=== PATIENT | female | born 1970 | race Caucasian/White ===

== ENCOUNTER 2021-05-11 15:48 | Inpatient (IN) | payer MEDICAID ==
[~2021-05-11] VITALS: Ht 160 cm; Wt 72.1 kg
[2021-05-11] MEDS ORDERED: RISP2TAB45 PO (16:12)
[2021-05-11] MEDS ORDERED: QUET200T PO (16:12)
[2021-05-11] MEDS ORDERED: LAMO100 PO ×2 (16:12→16:46)
[2021-05-11] MEDS ORDERED: CEPH500C3 PO (16:12)
[2021-05-11] MEDS ORDERED: CLON-595 PO (16:46)
[2021-05-11] MEDS ORDERED: HALOPERIDOL 5 MG TABLET PO PRN (20:00)
[2021-05-11] MEDS ORDERED: ZOLPIDEM TARTRATE 10 MG TABLET PO PRN (20:00)
[2021-05-11] MEDS ORDERED: LORazepam 2 MG TABLET PO PRN (20:00)
[2021-05-11 20:20] VITALS: BP 153/86
[2021-05-11 20:46] VITALS: BP 153/86
[2021-05-12 02:52] VITALS: BP 103/66
[2021-05-12 07:08] LABS: BASOPHILS % (AUTO) 0.2 % (0.0-2.0); EOSINOPHILS % (AUTO) 0.9 % (1.0-6.0); LYMPHOCYTES # (AUTO) 2.3 K/uL (1.0-4.8); LYMPHOCYTES % (AUTO) 35.5 % (22.0-44.0); MEAN CORPUSCULAR HEMOGLOBIN 32.1 pg (26.0-34.0); MEAN CORPUSCULAR HGB CONC 33.3 G/dL (31.0-37.0); MEAN CORPUSCULAR VOLUME 97 fL (80-100); MONOCYTES # (AUTO) 0.8 K/uL (0.1-1.0); MONOCYTES % (AUTO) 12.3 % (2.0-9.0); NEUTROPHILS # (AUTO) 3.3 K/uL (1.8-7.7); NEUTROPHILS % (AUTO) 51.1 % (40.0-70.0); PLATELET COUNT (AUTO) 216 K/uL (150-450); RED BLOOD CELL COUNT(AUTO) 3.73 MIL/uL (4.00-5.20); RED CELL DISTRIBUTION WIDTH 14.4 % (11.5-14.5)
[2021-05-12 07:21] LABS: HEMOGLOBIN A1C 5.1 % (3.8-5.6)
[2021-05-12 07:36] LABS: ALANINE AMINOTRANSFERASE 87 U/L (12-78); ALBUMIN 2.8 g/dL (3.4-5.0); ALKALINE PHOSPHATASE 50 U/L (46-116); ANION GAP 7 mmol/L (8-16); ASPARTATE AMINOTRANSFERASE 53 U/L (15-37); BILIRUBIN,TOTAL 0.2 mg/dL (0.1-1.0); CALCIUM, TOTAL 8.5 mg/dL (8.8-10.5); CARBON DIOXIDE 27 mmol/L (22-29); CHLORIDE 109 mmol/L (98-107); CHOLESTEROL 120 mg/dL (131-200); CREATININE 0.88 mg/dL (0.60-1.30); FREE T4 (FREE THYROXINE) 0.86 ng/dL (0.76-1.46); GLOMERULAR FILTR. RATE CALC > 60 mL/min (>60); GLUCOSE,RANDOM 90 mg/dL (70-110); HDL CHOLESTEROL 40 mg/dL (40-60); LDL CHOL (CALC.) 52 mg/dL (0-130); POTASSIUM 3.7 mmol/L (3.5-5.1); SODIUM SERUM 143 mmol/L (136-145); THYROID STIMULATING HORMONE 3.85 uIU/mL (0.36-3.74); TRIGLYCERIDES 139 mg/dL (15-150); UREA NITROGEN, BLOOD 13 mg/dL (7-18)
[2021-05-12] MEDS: CEPHALEXIN MONOHYDRATE 500 MG CAPSULE PO SCH ×4 (08:11→20:08)
[2021-05-12 09:22] VITALS: BP 110/74
[2021-05-12] MEDS ORDERED: CloNIDine HCL 0.1 MG TABLET PO PRN (10:15)
[2021-05-12] MEDS ORDERED: BENZOCAINE/MENTHOL LOZENGE PO PRN (10:15)
[2021-05-12] MEDS ORDERED: DOCUSATE SODIUM 100 MG CAPSULE PO PRN (10:15)
[2021-05-12] MEDS ORDERED: ACETAMINOPHEN 325 MG TABLET PO PRN (10:15)
[2021-05-12] MEDS ORDERED: MAG HYDROX/AL HYDROX/SIMETH ES 30 ML SUSPENSION UDCUP PO PRN (10:15)
[2021-05-12] MEDS ORDERED: MAGNESIUM HYDROXIDE SUSPENSION 30 ML UDCUP PO PRN (10:15)
[2021-05-12] MEDS ORDERED: PETROLATUM,WHITE 28 GM JELLY TP PRN (10:15)
[2021-05-12] MEDS ORDERED: ALBUTEROL SULFATE HFA 90 MCG/PUFF 8 GM INHALER IH PRN (10:15)
[2021-05-12] MEDS ORDERED: OMEPRAZOLE 20 MG CAPSULE PO PRN (10:15)
[2021-05-12] MEDS ORDERED: IBUPROFEN 600 MG TABLET PO PRN (10:15)
[2021-05-12] MEDS ORDERED: ONDANSETRON HCL 4 MG TABLET PO PRN (10:15)
[2021-05-12] MEDS ORDERED: LOPERAMIDE HCL 2 MG CAPSULE PO PRN (10:15)
[2021-05-12] MEDS ORDERED: BACITRACIN 28 GM OINTMENT TP PRN (10:15)
[2021-05-12] MEDS: DIVALPROEX SODIUM 500 MG DR TABLET PO SCH ×2 (12:20→20:08)
[2021-05-12] MEDS: BENZTROPINE MESYLATE 2 MG TABLET PO SCH ×2 (12:20→16:27)
[2021-05-12] MEDS: LITHIUM CARBONATE 300 MG CAPSULE PO SCH (12:21)
[2021-05-12] MEDS: HALOPERIDOL 10 MG TABLET PO SCH ×2 (12:24→16:27)
[2021-05-12 16:08] VITALS: BP 110/66
[2021-05-12] MEDS: LITHIUM CARBONATE 600 MG CAPSULE PO SCH (20:08)
[2021-05-12] MEDS: OLANZapine 10 MG TABLET PO SCH (20:08)
[2021-05-13 01:08] VITALS: BP 113/63
[2021-05-13] MEDS: LEVOTHYROXINE SODIUM 50 MCG TABLET PO SCH (06:40)
[2021-05-13 08:05] VITALS: BP 102/61
[2021-05-13] MEDS: CEPHALEXIN MONOHYDRATE 500 MG CAPSULE PO SCH ×4 (08:19→20:18)
[2021-05-13] MEDS: HALOPERIDOL 10 MG TABLET PO SCH ×2 (08:19→16:09)
[2021-05-13] MEDS: BENZTROPINE MESYLATE 2 MG TABLET PO SCH ×2 (08:19→16:09)
[2021-05-13] MEDS: DIVALPROEX SODIUM 500 MG DR TABLET PO SCH ×2 (08:19→20:23)
[2021-05-13] MEDS: LITHIUM CARBONATE 300 MG CAPSULE PO SCH (08:19)
[2021-05-13 16:08] VITALS: BP 110/66
[2021-05-13] MEDS: OLANZapine 10 MG TABLET PO SCH (20:19)
[2021-05-13] MEDS: LITHIUM CARBONATE 600 MG CAPSULE PO SCH (20:19)
[2021-05-14 00:30] VITALS: BP 107/62
[2021-05-14] MEDS: LEVOTHYROXINE SODIUM 50 MCG TABLET PO SCH (06:36)
[2021-05-14 07:44] LABS: APPEARANCE,URINE CLEAR (CLEAR); BILIRUBIN,URINE NEGATIVE (NEGATIVE); GLUCOSE, URINE (UA) NEGATIVE (NEGATIVE); KETONES,URINE NEGATIVE (NEGATIVE); LEUKOCYTE ESTERASE ,URINE SMALL (NEGATIVE); NITRATE,URINE NEGATIVE (NEGATIVE); OCCULT BLOOD,URINE SMALL (NEGATIVE); PROTEIN,URINE NEGATIVE (NEGATIVE); UROBILINOGEN,URINE 0.2 mg/dL (<=1.0)
[2021-05-14 07:58] LABS: AMPHET/METH SCREEN,URINE NEGATIVE (NEGATIVE); BARBITURATE SCREEN, URINE NEGATIVE (NEGATIVE); BENZODIAZEPINES SCREEN,URINE NEGATIVE (NEGATIVE); CANNABINOID SCREEN,URINE NEGATIVE (NEGATIVE); COCAINE SCREEN,URINE NEGATIVE (NEGATIVE); METHADONE SCREEN, URINE NEGATIVE (NEGATIVE); OPIATE SCREEN,URINE NEGATIVE (NEGATIVE)
[2021-05-14 08:04] VITALS: BP 94/53
[2021-05-14 08:04] LABS: BACTERIA,URINE None Seen /HPF (None Seen); RBC,URINE 0-2 /HPF (0-2); SQUAMOUS EPITHELIAL CELL,UR Few /LPF (None Seen)
[2021-05-14 08:08] LABS: PHENCYCLIDINE SCREEN,URINE NEGATIVE (NEGATIVE)
[2021-05-14] MEDS: DIVALPROEX SODIUM 500 MG DR TABLET PO SCH ×2 (08:24→20:42)
[2021-05-14] MEDS: CEPHALEXIN MONOHYDRATE 500 MG CAPSULE PO SCH ×4 (08:24→20:42)
[2021-05-14] MEDS: HALOPERIDOL 10 MG TABLET PO SCH ×2 (08:25→16:21)
[2021-05-14] MEDS: LITHIUM CARBONATE 300 MG CAPSULE PO SCH (08:25)
[2021-05-14] MEDS: BENZTROPINE MESYLATE 2 MG TABLET PO SCH ×2 (08:25→16:21)
[2021-05-14 08:34] VITALS: BP 96/63
[2021-05-14 16:08] VITALS: BP 105/64
[2021-05-14] MEDS: OLANZapine 10 MG TABLET PO SCH (20:42)
[2021-05-14] MEDS: LITHIUM CARBONATE 600 MG CAPSULE PO SCH (20:42)
[2021-05-15 04:20] VITALS: BP 104/54
[2021-05-15] MEDS: LEVOTHYROXINE SODIUM 50 MCG TABLET PO SCH (06:25)
[2021-05-15 08:13] VITALS: BP 117/72
[2021-05-15] MEDS: LITHIUM CARBONATE 300 MG CAPSULE PO SCH (08:40)
[2021-05-15] MEDS: DIVALPROEX SODIUM 500 MG DR TABLET PO SCH ×2 (08:40→20:31)
[2021-05-15] MEDS: BENZTROPINE MESYLATE 2 MG TABLET PO SCH ×2 (08:40→16:31)
[2021-05-15] MEDS: HALOPERIDOL 10 MG TABLET PO SCH ×2 (08:40→16:31)
[2021-05-15] MEDS: CEPHALEXIN MONOHYDRATE 500 MG CAPSULE PO SCH ×4 (08:40→20:30)
[2021-05-15 16:04] VITALS: BP 100/65
[2021-05-15] MEDS: OLANZapine 10 MG TABLET PO SCH (20:30)
[2021-05-15] MEDS: LITHIUM CARBONATE 600 MG CAPSULE PO SCH (20:30)
[2021-05-16 00:36] VITALS: BP 108/56
[2021-05-16] MEDS: LEVOTHYROXINE SODIUM 50 MCG TABLET PO SCH (06:16)
[2021-05-16 07:47] LABS: COVID AG,FIA SOURCE NASOPHARYNGEAL
[2021-05-16 07:47] LABS: LITHIUM 1.25 mmol/L (0.60-1.20)
[2021-05-16 08:16] VITALS: BP 110/70
[2021-05-16] MEDS: BENZTROPINE MESYLATE 2 MG TABLET PO SCH ×2 (08:50→16:28)
[2021-05-16] MEDS: CEPHALEXIN MONOHYDRATE 500 MG CAPSULE PO SCH ×4 (08:50→20:28)
[2021-05-16] MEDS: LITHIUM CARBONATE 300 MG CAPSULE PO SCH ×2 (08:50→20:28)
[2021-05-16] MEDS: DIVALPROEX SODIUM 500 MG DR TABLET PO SCH ×2 (08:50→20:28)
[2021-05-16] MEDS: HALOPERIDOL 10 MG TABLET PO SCH ×2 (08:52→16:28)
[2021-05-16 16:08] VITALS: BP 103/61
[2021-05-16] MEDS: OLANZapine 10 MG TABLET PO SCH (20:28)
[2021-05-17 01:14] VITALS: BP 102/63
[2021-05-17] MEDS: LEVOTHYROXINE SODIUM 50 MCG TABLET PO SCH (06:37)
[2021-05-17 08:25] VITALS: BP 101/66
[2021-05-17] MEDS: LITHIUM CARBONATE 300 MG CAPSULE PO SCH ×2 (08:48→20:29)
[2021-05-17] MEDS: CEPHALEXIN MONOHYDRATE 500 MG CAPSULE PO SCH ×4 (08:48→20:29)
[2021-05-17] MEDS: BENZTROPINE MESYLATE 2 MG TABLET PO SCH ×2 (08:48→16:32)
[2021-05-17] MEDS: HALOPERIDOL 10 MG TABLET PO SCH ×2 (08:48→16:32)
[2021-05-17] MEDS: DIVALPROEX SODIUM 500 MG DR TABLET PO SCH ×2 (08:48→20:29)
[2021-05-17 16:13] VITALS: BP 109/62
[2021-05-17] MEDS: OLANZapine 10 MG TABLET PO SCH (20:30)
[2021-05-18 01:05] VITALS: BP 118/64
[2021-05-18] MEDS: LEVOTHYROXINE SODIUM 50 MCG TABLET PO SCH (06:32)
[2021-05-18 08:14] VITALS: BP 100/56
[2021-05-18] MEDS: BENZTROPINE MESYLATE 2 MG TABLET PO SCH ×2 (09:19→16:02)
[2021-05-18] MEDS: LITHIUM CARBONATE 300 MG CAPSULE PO SCH ×2 (09:19→20:11)
[2021-05-18] MEDS: DIVALPROEX SODIUM 500 MG DR TABLET PO SCH ×2 (09:19→20:11)
[2021-05-18] MEDS: HALOPERIDOL 10 MG TABLET PO SCH ×2 (09:19→16:02)
[2021-05-18 16:04] VITALS: BP 102/55
[2021-05-18] MEDS: OLANZapine 10 MG TABLET PO SCH (20:11)
[2021-05-19 02:24] VITALS: BP 115/62
[2021-05-19] MEDS: LEVOTHYROXINE SODIUM 50 MCG TABLET PO SCH (07:03)
[2021-05-19 08:17] VITALS: BP 107/60
[2021-05-19] MEDS: HALOPERIDOL 10 MG TABLET PO SCH ×2 (08:46→16:58)
[2021-05-19] MEDS: LITHIUM CARBONATE 300 MG CAPSULE PO SCH ×2 (08:46→20:34)
[2021-05-19] MEDS: BENZTROPINE MESYLATE 2 MG TABLET PO SCH ×2 (08:46→16:58)
[2021-05-19] MEDS: DIVALPROEX SODIUM 500 MG DR TABLET PO SCH ×2 (08:46→20:34)
[2021-05-19 16:21] VITALS: BP 101/64
[2021-05-19] MEDS: OLANZapine 10 MG TABLET PO SCH (20:35)
[2021-05-20 01:21] VITALS: BP 105/73
[2021-05-20] MEDS: LEVOTHYROXINE SODIUM 50 MCG TABLET PO SCH (06:29)
[2021-05-20 08:15] VITALS: BP 103/65
[2021-05-20] MEDS: DIVALPROEX SODIUM 500 MG DR TABLET PO SCH ×2 (09:12→20:35)
[2021-05-20] MEDS: HALOPERIDOL 10 MG TABLET PO SCH ×2 (09:12→16:31)
[2021-05-20] MEDS: LITHIUM CARBONATE 300 MG CAPSULE PO SCH ×2 (09:12→20:35)
[2021-05-20] MEDS: BENZTROPINE MESYLATE 2 MG TABLET PO SCH ×2 (09:12→16:31)
[2021-05-20 16:09] VITALS: BP 109/64
[2021-05-20] MEDS: OLANZapine 10 MG TABLET PO SCH (20:35)
[2021-05-21 03:01] VITALS: BP 109/64
[2021-05-21] MEDS: LEVOTHYROXINE SODIUM 50 MCG TABLET PO SCH (06:45)
[2021-05-21 08:12] VITALS: BP 101/62
[2021-05-21] MEDS: DIVALPROEX SODIUM 500 MG DR TABLET PO SCH ×2 (09:33→20:19)
[2021-05-21] MEDS: BENZTROPINE MESYLATE 2 MG TABLET PO SCH ×2 (09:33→16:20)
[2021-05-21] MEDS: LITHIUM CARBONATE 300 MG CAPSULE PO SCH ×2 (09:33→20:19)
[2021-05-21] MEDS: HALOPERIDOL 10 MG TABLET PO SCH ×2 (09:33→16:20)
[2021-05-21 16:25] VITALS: BP 121/70
[2021-05-21] MEDS: OLANZapine 10 MG TABLET PO SCH (20:19)
[2021-05-22 01:11] VITALS: BP 102/62
[2021-05-22] MEDS: LEVOTHYROXINE SODIUM 50 MCG TABLET PO SCH (06:30)
[2021-05-22 08:16] VITALS: BP 120/61
[2021-05-22 08:41] LABS: COVID AG,FIA SOURCE NASOPHARYNGEAL
[2021-05-22] MEDS: LITHIUM CARBONATE 300 MG CAPSULE PO SCH ×2 (10:00→21:03)
[2021-05-22] MEDS: HALOPERIDOL 10 MG TABLET PO SCH ×2 (10:00→16:09)
[2021-05-22] MEDS: DIVALPROEX SODIUM 500 MG DR TABLET PO SCH ×2 (10:00→21:03)
[2021-05-22] MEDS: BENZTROPINE MESYLATE 2 MG TABLET PO SCH ×2 (10:00→16:09)
[2021-05-22 16:05] VITALS: BP 108/60
[2021-05-22] MEDS: OLANZapine 10 MG TABLET PO SCH (21:03)
[2021-05-23 00:40] VITALS: BP 102/65
[2021-05-23] MEDS: LEVOTHYROXINE SODIUM 50 MCG TABLET PO SCH (06:43)
[2021-05-23] MEDS: HALOPERIDOL 10 MG TABLET PO SCH (09:25)
[2021-05-23] MEDS: LITHIUM CARBONATE 300 MG CAPSULE PO SCH (09:25)
[2021-05-23] MEDS: DIVALPROEX SODIUM 500 MG DR TABLET PO SCH (09:25)
[2021-05-23] MEDS: BENZTROPINE MESYLATE 2 MG TABLET PO SCH (09:25)
[2021-05-23 10:06] VITALS: BP 103/68
[2021-05-23] MEDS ORDERED: BENZ2TAB10 PO (10:31)
[2021-05-23] MEDS ORDERED: DIVA-80 PO ×2 (10:32)
[2021-05-23] MEDS ORDERED: HALO10 PO (10:32)
[2021-05-23] MEDS ORDERED: OLAN10TA74 PO (10:33)
[2021-05-23] MEDS ORDERED: LITH300C3 PO (10:33)
[2021-05-23] MEDS ORDERED: LEVO50 PO (10:35)
[2021-05-23] MEDS ORDERED: DIVA-112 PO ×2 (10:39)
== END 2021-05-23 12:25 | disposition home or self-care (01) | DRG 750 ==
LOC: B2S 19:57
PROVIDERS: ADMIT Psychiatry & Neurology Psychiatry; ATTEND Psychiatry & Neurology Psychiatry
DX: F20.9 Schizophrenia, unspecified (principal); E03.9 Hypothyroidism, unspecified; Z20.822 Contact with and (suspected) exposure to COVID-19; F32.9 Major depressive disorder, single episode, unspecified; F41.9 Anxiety disorder, unspecified; I10 Essential (primary) hypertension; G47.00 Insomnia, unspecified; K59.00 Constipation, unspecified; N39.0 Urinary tract infection, site not specified
CPT/HCPCS: 80053; 80061; 80164; 80178; 80307; 81001; 83036; 84439; 84443; 85025; 87081